=== PATIENT | male | born 1955 | race Caucasian/White ===

== ENCOUNTER 2020-11-30 14:07 | Emergency (ER) | payer MEDICARE ==
[~2020-11-30] VITALS: Ht 167.6 cm; Wt 63.5 kg
== END 2020-11-30 16:15 | disposition home or self-care (01) ==
LOC: ER 14:07
DX: H11.003 Unspecified pterygium of eye, bilateral (principal)
CPT/HCPCS: 99282

== ENCOUNTER 2020-12-02 08:07 | Emergency (ER) | payer MEDICARE ==
[~2020-12-02] VITALS: Ht 167.6 cm; Wt 61.2 kg
== END 2020-12-02 10:18 | disposition left against medical advice (07) ==
LOC: ER 08:07
DX: H57.9 Unspecified disorder of eye and adnexa (principal); Z53.21 Procedure and treatment not carried out due to patient leaving prior to being seen by health care provider
CPT/HCPCS: 99282

== ENCOUNTER 2021-01-04 17:53 | Emergency (ER) | payer MEDICARE ==
[~2021-01-04] VITALS: Ht 167.6 cm; Wt 59.0 kg
== END 2021-01-04 19:15 | disposition home or self-care (01) ==
LOC: ER 17:53
DX: H57.13 Ocular pain, bilateral (principal)
CPT/HCPCS: 99283

== ENCOUNTER 2021-01-06 12:02 | Emergency (ER) | payer MEDICARE ==
[~2021-01-06] VITALS: Ht 167.6 cm; Wt 65.8 kg
== END 2021-01-06 13:02 | disposition left against medical advice (07) ==
LOC: ER 12:02
DX: Z53.21 Procedure and treatment not carried out due to patient leaving prior to being seen by health care provider (principal)